=== PATIENT | female | born 1935 | race African-American/Black ===

== ENCOUNTER 2019-05-04 19:20 | Inpatient (IN) ==
[2019-05-04] MEDS ORDERED: SOLU-MEDROL IV ONE (19:52)
[2019-05-04 20:02] LABS: BASO# 0.03 X1000 (0.0-0.2); BASO% 0.2 % (0.0-0.8); EOS# 0.17 X1000 (0.0-0.7); EOS% 1.3 % (0.0-10.0); HEMATOCRIT 36.3 % (37.0-47.0); IMM GRAN# 0.04 X1000 (0.0-0.04); IMM GRAN% 0.3 % (0.0-0.5); LYMPH# 1.32 X1000 (1.2-3.4); LYMPH% 10.3 % (20.5-51.1); MCH 27.1 PG (27-31); MCHC 33.1 g/dL (33-37); MCV 81.9 FL (81-99); MONO# 0.77 X1000 (0.11-0.59); MPV 11.9 FL (7.4-10.4); NEUT# 10.54 X1000 (1.4-6.5); NEUT% 81.9 % (42.2-75.2); PLT 205 X1000 (130-400); RBC 4.43 XMIL (4.2-5.4); RDW 14.4 % (11.5-14.5); WBC 12.87 X1000 (4.8-10.8)
[2019-05-04 20:09] LABS: INR 0.91
--- NOTE | 2019-05-04 20:46 | Diag Imaging Result Doc PS360 ---
EXAM: CHEST-PORTABLE HISTORY: SOB, hypoxia TECHNIQUE: Chest single view COMPARISON: 03/21/2018 FINDINGS: The lungs are well expanded. The heart is not enlarged. There are increased interstitial markings throughout both lungs. No effusion identified. IMPRESSION: Infiltrates versus mild pulmonary edema. Electronically signed by Sanjay Soliz 05/04/2019 8:44 PM
[2019-05-04] MEDS ORDERED: VANCOMYCIN 1 GM/NS 1 GM/250 ML IVPB IV ONE (20:58)
[2019-05-04] MEDS ORDERED: ZOSYN 3.375 GM in NS 50 ML IV ONE (20:58)
[2019-05-04] MEDS ORDERED: LASIX IV ONE (20:59)
--- NOTE | 2019-05-04 21:21 | PROVIDER DOCUMENTATION ---
This chart was entered by Jessica Aguiar Scribe, acting as scribe for Roseann Jalloh MD. HPI-General Adult - General Chief Complaint: General Adult Stated Complaint: sob Time Seen by Provider: 05/04/19 19:24 Source: EMS, long term records Unable to obtain history due to:: other (patient is non-verbal and no family at bedside) Allergies/Adverse Reactions: Patient Allergies Allergy/AdvReac Type Severity Reaction Status Date / Time No Known Allergies Allergy Verified 05/04/19 23:21 Home Medications: Home Medication List Medication Instructions Recorded Confirmed Last Taken Type Amlodipine Besylate [Norvasc] 5 mg PEG DAILY 04/20/15 05/04/19 03/08/18 History Baclofen 10 mg PEG DIRECTED 04/20/15 05/04/19 03/08/18 History Baclofen 5 mg PEG DAILY@1300 08/13/15 05/04/19 03/08/18 History Cholecalciferol (Vit D3) [Vitamin 2,000 unit PEG DAILY 08/13/15 05/04/19 03/08/18 History D3] Lactulose 30 ml PEG EVERY OTHER DAY 08/13/15 05/04/19 03/08/18 History Menthol/Zinc Oxide Ointment 1 applicatn TOP PRN PRN 08/13/15 05/04/19 03/08/18 History [Calmoseptine Ointment] Balsam [place] Oil [Venelex 1 applicatn TP BID 03/09/18 05/04/19 Unknown History Ointment] Ferrous Sulfate 7.5 ml PEG BID 03/09/18 05/04/19 03/08/18 History Multivits W-Fe,Other Min [Centrum] 15 ml PEG DAILY@1300 03/09/18 05/04/19 03/08/18 History Ranitidine [Zantac] 1 tab PEG BID 03/09/18 05/04/19 03/08/18 History Acetaminophen Liquid [Tylenol 650 mg PO Q6H PRN PRN udc 03/23/18 05/04/19 Unknown Rx Liquid] Fentanyl 25 Microgm/Hr Patch 1 patch TD Q3D #10 patch 03/23/18 05/04/19 Unknown Rx [Duragesic 25 Microgm/Hr Patch] Oxycodone HCl 5 mg PEG Q4H PRN PRN #20 cap 03/23/18 05/04/19 Unknown Rx Scopolamine 1.5 mg/72 Hr Patch 1 patch TD Q3D #10 patch 03/23/18 05/04/19 Unknown Rx [Transderm-Scop] Amlodipine Besylate 1 tab PEG QPM 05/04/19 05/04/19 Unknown History Levothyroxine [Synthroid] 1 tab PEG 0600 05/04/19 05/04/19 Unknown History Protein Hydrolysate,Milk [Liquid 30 ml PEG TID 05/04/19 05/04/19 Unknown History Protein Fortifier] Sodium Cl/Potassium Chloride 1 tab PEG 1300 05/04/19 05/04/19 Unknown History [Thermotabs Tablet] - History of Present Illness -Gen Adult Nature of Presenting Problems: Pt is 83/F presenting to ED from [facility]. It was stated that she was heard moaning about an hr [employer] and she was sating 60-70% o2 on her normal 2 L. Pt arrives to ED EMS and is continuing to moan and is contracted in bed. Per NH she is at her normal baseline as far as mental status. No family at bedside. She is a DNR. No other information is able to be obtained. Location of Pain/Injury: reports: none Quality of Pain: reports: none Severity: reports: moderate Onset/Duration: reports: 1 hour ago Timing: reports: still present Context/Activities at Onset: reports: none Associated Symptoms: reports: shortness of breath Similar Symptoms Previously?: No Recently seen or treated by another doctor?: Yes Review of Systems - Adult - REVIEW OF SYSTEMS - ADULT ROS:: limited per condition Constitutional: reports: no symptoms reported Respiratory: reports: shortness of breath. denies: wheezing Gastrointestinal: reports: no symptoms reported. denies: vomiting Genitourinary: reports: no symptoms reported Musculoskeletal: reports: no symptoms reported Integumentary: reports: no symptoms reported Neurological: reports: no symptoms reported Psychiatric: reports: no symptoms reported Endocrine: reports: no symptoms reported Hematologic/Lymphatic: reports: no symptoms reported Allergic/Immunologic: reports: no symptoms reported All Other Systems: Reviewed and Negative Past History - Adult - PAST MEDICAL HISTORY-ADULT Review of Records: reports: Old Records Reviewed, Nursing Assessment Review, M edications Reviewed, Social history reviewed & non-contributory. Major Childhood Illnesses: reports: denies history Cardiovascular: reports: HTN Respiratory: reports: COPD Gastrointestinal: reports: cancer (skin), colitis, diverticulosis Obstetrical/Gynecological: reports: denies history Genitourinary: reports: denies history Musculoskeletal: reports: other (amputation) Neurological: reports: CVA, dementia, TIA Psychiatric: reports: denies history Endocrine/Immune: reports: thyroid disorder Other Conditions: reports: denies history - PRIOR SURGERIES/PROCEDURES Surgical/Procedure History: reports: bowel surgery, orthopedic (extremity) - IMMUNIZATION STATUS Childhood Immunizations: See Nurse Assessment Flu Vaccine: See Nurse Assessment - FAMILY HISTORY Family History: reviewed, not pertinent - SOCIAL HISTORY Living Situation: care facility Physical Exam-General - PHYSICAL EXAM-ADULT Exam Limited by: patient in contractures Initial Vital Signs Reviewed: Yes - CONSTITUTIONAL General Appearance: other (moaning in bed, no verbal responses, on NRB and nebulizers. contractures with legs bent to abdomen and patient laying on her l eft side) - EYES Eyes: PERRL/EOMI, pink conjunctivae - HEAD, EARS, NOSE, MOUTH & THROAT HENMT: normocephalic/atraumatic - NECK Neck: supple - RESPIRATORY Respiratory: respiratory distress, decreased breath sounds, accessory muscle use , crackles (diffusely, bilaterally), increased rate - CARDIOVASCULAR Cardiovascular: normal peripheral pulses, regular rate, rhythm - GASTROINTESTINAL (ABDOMEN) Abdominal Exam: normal bowel sounds, non tender, soft - MUSCULOSKELETAL Back Exam: kyphosis Extremity: no pedal edema - SKIN Integumentary: normal color, warm/dry - NEUROLOGIC Neurologic: other (unable to fully assess due to non-verbal and inability to cooperate or follow commands) - PSYCHIATRIC Psych/Mental Status: disoriented x 3 Progress - PLAN OF CARE/RESULTS Progress/Plan/Lab Results: Vital Signs - 8 hr 05/04/19 19:26 Temperature 98.1 F Pulse Rate 102 H Respiratory Rate 21 Blood Pressure 126/104 O2 Sat by Pulse Oximetry 100 Laboratory Results - last 24 hr 05/04/19 05/04/19 05/04/19 19:50 19:50 19:50 WBC 12.87 H RBC 4.43 Hgb 12.0 Hct 36.3 L MCV 81.9 MCH 27.1 MCHC 33.1 RDW Std Deviation 14.4 Plt Count 205 MPV 11.9 H Immature Gran % (Auto) 0.3 Neut % (Auto) 81.9 H Lymph % (Auto) 10.3 L [place] % (Auto) 6.0 Eos % (Auto) 1.3 Baso % (Auto) 0.2 Immature Gran # (Auto) 0.04 Neut # (Auto) 10.54 H Lymph # (Auto) 1.32 [place] # (Auto) 0.77 H Eos # (Auto) 0.17 Baso # (Auto) 0.03 PT 13.0 INR 0.91 Plasma Lactate 1.6 Orders Category Date Time Status CHEST-PORTABLE [RAD] Stat Exams 05/04/19 19:52 Ordered CBC WITH ELECTRONIC DIFF [HEME] Stat Lab 05/04/19 19:50 Completed COMPREHENSIVE METABOLIC PANEL [CHEM] Stat Lab 05/04/19 20:08 Ordered LACTATE, PLASMA [CHEM] Stat Lab 05/04/19 19:50 Completed PRO B-NATRIURETIC PEPTIDE Stat Lab 05/04/19 20:08 Ordered PROTIME WITH INR [COAG] Stat Lab 05/04/19 19:50 Completed TROPONIN T Stat Lab 05/04/19 20:08 Ordered URINALYSIS W/POSS RFLX CULT [URINALYSIS] Stat Lab 05/04/19 19:52 Uncollected Methylprednisolone Sod Succ [Solu-Medrol] Med 05/04/19 19:52 Discontinued 125 mg IV NOW ONE Patient SpO2 improved with duonebs x3 and solumedrol and was placed on 50% venti mask and SpO2 was in the 90s. CXR showing infiltrates vs pulmonary edema. Started on Vanc and ZOsyn, and blood cultures drawn. LA 1.6. WBC slightly elevted to 13. BNP only 388 but still given Lasix 40mg given crackles and CXR. Spoke to DC who confirmed patient is full code, still no family at bedside. Spoke to Hospitalist who accepted patient for admission. Further orders to be placed per hospitalist. Result Diagrams: 05/04/19 19:50 05/04/19 20:34 - XRAY 1 XRAY Study: Chest Impression: See EMR Report ( EXAM: CHEST-PORTABLE HISTORY: SOB, hypoxia TECHNIQUE: Chest single view COMPARISON: 03/21/2018 FINDINGS: The lungs are well expanded. The heart is not enlarged. There are increased interstitial markings throughout both lungs. No effusion identified. IMPRESSION: Infiltrates versus mild pulmonary edema. Electronically signed by Sanjay Soliz 05/04/2019 8:44 PM) - CONSULTS/PCP/HOSPITALIST Notification #1 *Consult/PCP/Hospitalist*: Dr Covington Time Discussed: 21:59 Consult Disposition: Admit Departure - Departure Date of Disposition Decision: 05/04/19 Time of Disposition Decision: 22:00 DIAGNOSIS: Pneumonia, Hypoxia, Pulmonary edema Disposition: ADMITTED INPATIENT 09 Certified Medical Emergency: Emergent Condition: Fair - Critical Care Note This patient required my direct & personal management of CC.: Yes Total Time (mins): 75 Critical Care Statement: This patient required my direct personal management to treat or rule out processes, the absence of which, could potentiallly result in sudden, clinically significant life or limb threatening deterioration. Attestation - Physician/ ALEJANDRO Attestation Patient care was provided by Advanced Practice Provider:: No The physician spent face to face time with patient:: Yes Advanced Practice Provider documentation review:: Supervising physician onsite and consulted in the evaluation and care of this patient. The physician did have a face to face encounter with the patient. This chart was documented by the indicated scribe, (Jessica Aguiar, Lester) and accurately reflects the services I performed and decisions made by me, Roseann Jalloh MD, as attested by the provider's signature.
[2019-05-04 21:28] LABS: AGAP 13; ALBUMIN 3.9 g/dL (3.5-5.0); ALKALINE PHOSPHATASE 113 U/L (32-104); BUN 16 mg/dL (8-22); CHLORIDE 97 mmol/L (98-107); COSMO 279; CREATININE 0.4 mg/dL (0.5-0.9); ESTIMATED GFR > 60; GLUCOSE 169 mg/dL (70-104); GOT 20 U/L (10-30); GPT 17 U/L (10-36); POTASSIUM 4.1 mmol/L (3.5-5.1); SODIUM 137 mmol/L (136-145); TCO2 27 mmol/L (25-35); TOTAL BILIRUBIN 0.22 mg/dL (0.20-1.00); TOTAL PROTEIN 7.7 g/dL (6.3-8.3)
[2019-05-04 22:07] LABS: URINE SOURCE CATH
[2019-05-04 22:25] LABS: BILIRUBIN URINE NEGATIVE (NEGATIVE); BLOOD URINE NEGATIVE (NEGATIVE); COLOR YELLOW; GLUCOSE URINE NEGATIVE (NEGATIVE); KETONE URINE NEGATIVE (NEGATIVE); LEUKOCYTES URINE NEGATIVE (NEGATIVE); NITRITE URINE NEGATIVE (NEGATIVE); PH URINE 6.5; PROTEIN URINE NEGATIVE (NEGATIVE); SP GRAVITY URINE 1.011; TURBIDITY URINE CLEAR (CLEAR); UR EPITHELIAL CELLS <10 /HPF (<10); URINE BACTERIA NEGATIVE /HPF; URINE RBC <10 /HPF (<10); URINE WBC <10 /HPF (<10); UROBILINOGEN URINE NORMAL (NORMAL)
[2019-05-05] MEDS ORDERED: VANCOMYCIN IV PER PHARMACY MISC SCH (01:15)
[2019-05-05] MEDS ORDERED: OXY IR PEG PRN (01:57)
[2019-05-05] MEDS ORDERED: ZINC OXIDE 20% TOP PRN (02:27)
[2019-05-05] MEDS ORDERED: VANCOMYCIN 250 MG in NS 100 ML IV ONE (03:00)
[2019-05-05] MEDS: DUONEB (A & A) INH SCH ×4 (03:30→21:30)
[2019-05-05] MEDS: ZOSYN 3.375 GM in NS 50 ML IV SCH ×4 (03:32→22:40)
[2019-05-05] MEDS ORDERED: NON-FORMULARY MED (Protein Hydrolysate,Milk [Liquid Protein Fortifier] 30 ML) PEG SCH (05:00)
[2019-05-05 05:52] LABS: BASO# 0.01 X1000 (0.0-0.2); BASO% 0.1 % (0.0-0.8); HEMATOCRIT 36.9 % (37.0-47.0); HEMOGLOBIN 12.4 g/dL (12.0-16.0); LYMPH# 0.32 X1000 (1.2-3.4); LYMPH% 3.7 % (20.5-51.1); MCH 27.3 PG (27-31); MCHC 33.6 g/dL (33-37); MCV 81.3 FL (81-99); MONO# 0.02 X1000 (0.11-0.59); MONO% 0.2 % (1.7-9.3); MPV 11.8 FL (7.4-10.4); NEUT# 8.36 X1000 (1.4-6.5); PLT 236 X1000 (130-400); RBC 4.54 XMIL (4.2-5.4); RDW 14.5 % (11.5-14.5); WBC 8.71 X1000 (4.8-10.8)
[2019-05-05] MEDS ORDERED: SYNTHROID PEG SCH (06:00)
[2019-05-05 06:05] LABS: AGAP 15; ALB/GLOB RATIO 0.9; ALBUMIN 4.1 g/dL (3.5-5.0); ALKALINE PHOSPHATASE 122 U/L (32-104); BUN 16 mg/dL (8-22); CALCIUM 10.5 mg/dL (8.8-10.2); CHLORIDE 95 mmol/L (98-107); COSMO 288; CREATININE 0.5 mg/dL (0.5-0.9); ESTIMATED GFR > 60; GLUCOSE 274 mg/dL (70-104); GOT 18 U/L (10-30); GPT 18 U/L (10-36); MAGNESIUM 2.1 mg/dL (1.5-2.7); POTASSIUM 3.7 mmol/L (3.5-5.1); SODIUM 139 mmol/L (136-145); TCO2 29 mmol/L (25-35); TOTAL PROTEIN 8.8 g/dL (6.3-8.3)
[2019-05-05] MEDS: LIORESAL PEG SCH ×2 (06:20→22:41)
[2019-05-05 06:26] LABS: INR 0.95; PROTIME 13.4 Seconds (11.0-16.0)
[2019-05-05 06:27] LABS: PTT 33.9 Seconds (22.3-41.8)
--- NOTE | 2019-05-05 06:36 | HISTORY AND PHYSICAL ---
PRIMARY CARE PHYSICIAN: Dr. Ev Reeves at [facility]. DATE AND TIME: 05/04/2019 at 2230. CHIEF COMPLAINT: Shortness of breath and hypoxia. HISTORY OF PRESENT ILLNESS: Ms. Nelson is an 83-year-old, female who is a long- term resident at [facility] in [place], [place]. According to ER staff's notes, the staff at the assisted reported that they could hear the patient moaning. They went in to check on her, performed her vital signs, and found that she had an oxygen saturation of 60-70% on her normal nasal cannula at 2 L. Per the assisted, she was at her normal baseline mentation. The patient was sent to the ER with a copy of a do not resuscitate order, although at this time we do not have any family at bedside to assist with obtaining any information. The patient does have a history of dementia as well as a CVA with residual effect causing contractures of the bilateral upper and lower extremities. The patient is nonverbal, although she does open her eyes to verbal and light tactile stimulation, although she is not able to follow any commands. She also does have some dysphagia with subsequent feeding tube placement. Upon evaluation in the ER initial vital signs were a temperature of 98.1 degrees, heart rate 102, respirations 21, blood pressure 126/104 with a MAP of 118, and 100% on non- rebreather. Since arrival she has been back down to a Ventimask at 50% and is tolerating this well and maintaining oxygen saturations at 100%. Laboratory results revealed a slightly elevated white blood cell count of 12,870. Chemistries were pretty unremarkable. Troponin was negative. ProBNP was 388. Chest x-ray showed that the lungs were well expanded and the heart was not enlarged. There were increased interstitial markings throughout both lungs. The radiologist's impression was infiltrates versus mild pulmonary edema. In the ER, they did go ahead and initiate a dose of Lasix 40 mg IV, for which the patient did have a positive response with urine output initially of 2000 mL. She was noted to have decreased breath sounds with accessory muscle use as well as crackles diffusely and bilaterally, although at the time of my examination this had markedly improved. The patient did have slightly diminished lung sounds in the left lung base, although other than this she was clear to auscultation. She had blood cultures obtained. We will obtain a sputum culture as well. She has been placed with antibiotic coverage of vancomycin and Zosyn, and given that she is a assisted resident we will cover her for healthcare associated pneumonia. She has been placed in patient for admission. REVIEW OF SYSTEMS: We are unable to perform review of systems with the patient due to her current condition and mentation. PAST MEDICAL HISTORY: This was obtained from her assisted records as well as previous history and physical: 1. Hypothyroidism. 2. Vitamin D deficiency. 3. Protein calorie malnutrition. 4. Anemia. 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 6. COPD on continuous oxygen per nasal cannula at 2 L. 7. Hypertension. 8. 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 9. Dementia. 10. Dysphagia with subsequent feeding tube placement. 11. Aphasia. PAST SURGICAL HISTORY: 1. Gastrectomy tube placement. 2. Left orthopedic hip replacement. 3. Left carotid endarterectomy. FAMILY HISTORY: We were unable to obtain past family medical history due to the patient's current condition and mentation. SOCIAL HISTORY: The patient is a long-term resident at [facility]. There is no known history of tobacco, alcohol, or illicit drug use. ALLERGIES: The patient has no known allergies. HOME MEDICATIONS: 1. Norvasc 5 mg per G-tube daily at 13:00. 2. Norvasc 2.5 mg per G-tube at bedtime. 3. Baclofen 5 mg per G-tube daily at 13:00. 4. Baclofen 10 mg per G-tube b.i.d. at 5:00 and 21:00. 5. Vitamin D3 2000 units per G-tube daily at 13:00. 6. Fentanyl patch 25 mcg/hour, 1 transdermally q.3 days at 17:00. 7. Ferrous sulfate elixir 220 mg/5 mL with 7.5 mL per G-tube 3 times a day at 8:00, 12:00 and 16:00. 8. Lactulose 30 mL per G-tube every other day at 13:00. 9. Synthroid 100 mcg per G-tube at 6:00. 10. Centrum liquid multivitamin 15 mL per G-tube every day at 12:00. 11. OxyIR 5 mg per G-tube q.4 hours p.r.n. for pain. 12. Zantac 150 mg per G-tube b.i.d. 13. Scopolamine patch 1.5 mg per 72 hours, one patch transdermally q.3 days at 12:00. 14. Zinc oxide 20% ointment, apply topically to affected area at G-tube site as needed for skin irritation. 15. Thermotabs give 1 tablet per G-tube daily at 13:00. LABORATORY RESULTS: White blood cell count 12,870, hemoglobin 12, hematocrit 36.3, platelet count 205,000, PT 13, INR 0.91, sodium 137, potassium 4.1, chloride 97, serum bicarb 27, BUN 16, creatinine 0.4, GFR greater than 60, glucose 169, calcium 10. Liver function tests within normal limits. Alkaline phosphatase is slightly elevated at 113. Troponin is less than 0.01. ProBNP is 388. Plasma lactate is 1.6. Urinalysis obtained via catheter was negative for protein, glucose, ketones, blood, nitrites, leukocytes, white blood cells, or bacteria. EKG: Showed sinus tachycardia with possible left atrial enlargement at a rate of 103 with a QTc of 476. IMAGING STUDIES: Chest x-ray showed that the lungs were well expanded and heart was not enlarged. There were increased interstitial markings throughout both lungs. There was no effusion identified. The radiologist's impression was infiltrates versus mild pulmonary edema. PHYSICAL EXAMINATION: VITAL SIGNS: Temperature 98.1 degrees, heart rate 103, respirations 20, blood pressure 144/61, MAP of 77, oxygen saturation 99% on a Ventimask at 50%. GENERAL: Ms. Nelson is an elderly female who is resting on the ER stretcher. She is in no acute distress. The patient is resting with her eyes closed. She was arousable with verbal light tactile stimulation, although would only open her eyes and close them immediately back. The patient has a history of a stroke and she does have contractures noted of bilateral upper and lower extremities. She is aphasic and is not able to follow commands. According to assisted staff she is at her baseline mentation. HEENT: Head is atraumatic, normocephalic. Pupils are 3 mm bilaterally, equal, round and reactive to light. Oral mucosa is moist. NECK: Supple. Trachea midline. CARDIOVASCULAR: S1, S2 present. No murmurs, gallops, or rubs appreciated. Slightly tachycardic rate that is regular. PULMONARY: Patient has symmetrical chest expansion bilaterally. Lung sounds are clear in all welch, except slightly diminished in the left lung base. ABDOMEN: Soft. Does not appear to be distended. She did not have any facial grimacing, guarding or localization to pain upon palpation. Bowel sounds are present all 4 quadrants. Normoactive. The patient's G-tube site upon examination did have some slight erythema noted around the site extending about 1 inch outward. There did not appear to be any drainage noted. EXTREMITIES: No cyanosis or edema noted. Radial pulses and pedal pulses are 2+ bilaterally. The patient does have contractures noted to bilateral upper and lower extremities, although some slight movement was noted in her bilateral lower extremities. INTEGUMENTARY: The patient's skin is pink, warm, and dry. NEUROLOGICAL: The patient is, as mentioned above is oriented x0. She is resting with her eyes closed. She does respond to verbal and light tactile stimulation by opening her eyes and immediately closing them back though. The patient is aphasic. She is not been able to follow commands. According to report from nursing staff at [facility], this is the patient's baseline mentation, although due to this patient's neurological exam is limited. ASSESSMENT AND PLAN: 1. Possible bilateral pneumonia. The patient's chest x-ray did note infiltrates versus mild pulmonary edema with increasing interstitial markings throughout both lungs. She does have some slight leukocytosis. She was noted to have crackles upon initial arrival to the ER and was hypoxic. We have gone ahead and placed her with antibiotic coverage of vancomycin and Zosyn. We will cover her for healthcare associated pneumonia given that she is a permanent resident at [facility]. Blood cultures have been obtained. Sputum culture has been ordered. We will do scheduled DuoNeb treatments. We will continue to follow. 2. Pulmonary edema. The patient does not have a known history of any heart failure. Chest x-ray did show, as mentioned above infiltrates versus mild pulmonary edema. She does not have any edema noted in extremities. She was noted to have diffuse crackles bilaterally upon arrival to the ER, but after being given 40 mg of Lasix IV she did have improvement in her respiratory status. The patient has been able to be weaned down to a Ventimask at 50% and is maintaining oxygen saturation at 100%. Upon reassessment she now does have lung sounds that are clear to auscultation in all welch, except for just slightly diminished in the left lung base. She did have a positive response to Lasix with a urine output of 2000 mL. We will continue to monitor her respiratory status closely. She will be on continuous cardiac telemetry and pulse oximetry. We have placed an order for an echocardiogram in the morning to rule out any heart failure as well. We will also repeat a series of cardiac enzymes and will continue to follow closely. 3. Acute hypoxic respiratory failure. This is likely multifactorial. The patient does have possible pneumonia versus pulmonary edema and does have a history of COPD with continuous oxygen. Will continue treatment as mentioned above in #1 and #2. 4. History of chronic obstructive pulmonary disease on continuous oxygen via nasal cannula at 2L. 5. History of cerebrovascular accident with residual effect causing contractures of the bilateral upper and lower extremities as well as dysphagia with subsequent feeding tube placement and aphasia. 6. Dementia. 7. Hypertension. We will continue her other prescribed antihypertensive medications. 8. Hypothyroidism. We will continue her Synthroid. We have placed orders for a TSH in the morning. 9. Dysphagia with subsequent feeding tube placement. We have continued the patient's tube feedings and her free water flushes. She was previously receiving 50 mL/hour, although given possibility of pulmonary edema with some fluid overload, we have cut this back to 25 mL/hour. This will need to be re-evaluated. We will monitor her fluid volume status closely. 10. Deep vein thrombosis prophylaxis is provided with sequential compression devices. The patient was placed on the medical floor with telemetry. She will have vital signs q.4 hours. We will do strict intake and output. We will repeat a CBC, CMP, and magnesium in the morning. Further orders and recommendations pending hospital course, diagnostic studies, and physician evaluation. Dictated by MARCK Arshad for Luis Covington MD I have performed a face to face diagnostic evaluation. Labs/ Xrays- reviewed. Exam- Chest- rales, CV- regular. A/P- Pneumonia, COPD- Admit, IV ABX, duo nebs. Dr. Covington cc: Luis Covington MD [facility]
[2019-05-05 07:06] LABS: LYMPHS 4 % (21-51); SEGS 96 % (42-75)
[2019-05-05] MEDS ORDERED: FEOSOL LIQUID PEG SCH (08:00)
--- NOTE | 2019-05-05 10:31 | PROGRESS NOTE ---
DATE: 05/05/2019 SUBJECTIVE: This morning Ms. Nelson is seen in her hospital bed. She is nonverbal, and there is no family member at the bedside. From documentation, it appears that Ms. Nelson is a long-term resident of [facility] in [place], [place]. She has CVA which was complicated with dysphagia leading to a PEG tube placement. She was brought in last night because of shortness of breath and O2 saturation in the 60s to 70s. OBJECTIVE: This morning her blood pressure is 141/59, pulse is 81, respiration is 18, temperature is 98.6 degrees. The patient was saturating 100% on face mask. On general exam, Ms. Nelson is an 83-year-old female. She is in bed. She does not seem to be in any distress. Mucosa is pink and moist. Anicteric. Acyanotic. Neck is supple. Chest: Air entry is bilaterally reduced. There is some expiratory wheezing as well as some crackles in the posterior lung welch. Cardiovascular: Regular rate and rhythm. Abdomen is soft. There is a PEG tube in place. Extremities: No pedal edema. Central Nervous System: Patient is nonverbal, and she has spastic quadriplegia. DIAGNOSTIC STUDIES: WBC is down to 8.71, hemoglobin is 12.4, platelet count of 236. Chemistry is also reviewed; glucose is 274, rest of chemistry is unremarkable. TSH is 1. Blood culture still pending so far. A chest x-ray did show infiltrate versus mild pulmonary edema. MEDICATION: Current medications have all been reviewed. Patient has been started on vancomycin and Zosyn. ASSESSMENT: 1. Acute on chronic hypoxemic respiratory failure. The patient is currently on a Venturi mask and seems to be saturating a whole lot better. 2. Bilateral multifocal pneumonia, presumably aspiration pneumonitis. The patient is on IV antibiotics. 3. History of cerebrovascular accident complicated with dysphagia. The patient has a PEG tube and on tube feedings. 4. Hypothyroidism with low TSH level, consistent with iatrogenic hyperthyroidism. We will reduce the dose of the levothyroxine. 5. History of chronic obstructive pulmonary disease. 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 cc: MD JULIA Howell
[2019-05-05] MEDS ORDERED: TRANSDERM-SCOP TD SCH (12:00)
[2019-05-05] MEDS: FEOSOL LIQUID PO SCH ×3 (12:28→16:37)
[2019-05-05] MEDS: ZANTAC PEG SCH ×2 (12:28→22:41)
[2019-05-05] MEDS ORDERED: LACTULOSE PEG SCH (13:00)
[2019-05-05] MEDS ORDERED: ELDERTONIC PEG SCH (13:00)
[2019-05-05] MEDS ORDERED: LIORESAL PEG SCH (13:00)
[2019-05-05] MEDS ORDERED: VITAMIN D PEG SCH (13:00)
[2019-05-05] MEDS ORDERED: NORVASC PEG SCH ×2 (13:00→20:00)
[2019-05-05] MEDS ORDERED: DURAGESIC 25 MICROGM/HR PATCH TD SCH (17:00)
[2019-05-06] MEDS: DUONEB (A & A) INH SCH ×3 (03:40→15:26)
[2019-05-06] MEDS: ZOSYN 3.375 GM in NS 50 ML IV SCH ×2 (04:07→09:37)
[2019-05-06] MEDS: LIORESAL PEG SCH (04:08)
[2019-05-06] MEDS: SYNTHROID PEG SCH ×2 (04:08→07:48)
[2019-05-06 07:12] LABS: AGAP 12; ALBUMIN 3.4 g/dL (3.5-5.0); BUN 22 mg/dL (8-22); CALCIUM 10.1 mg/dL (8.8-10.2); CHLORIDE 100 mmol/L (98-107); COSMO 289; CREATININE 0.5 mg/dL (0.5-0.9); ESTIMATED GFR > 60; GLUCOSE 143 mg/dL (70-104); MAGNESIUM 2.3 mg/dL (1.5-2.7); PHOSPHORUS 2.6 mg/dL (2.7-4.5); POTASSIUM 3.3 mmol/L (3.5-5.1); SODIUM 142 mmol/L (136-145); TCO2 30 mmol/L (25-35)
--- NOTE | 2019-05-06 07:47 | EKG Report ---
Test Performed on : 05/04/2019 11:46:05 PM Test Reason : Dyspnea,Hypoxia Blood Pressure : / mmHG Vent. Rate : 103 BPM Atrial Rate : 103 BPM P-R Int : 146 ms QRS Dur : 072 ms QT Int : 364 ms P-R-T Axes : 085 083 069 degrees QTc Int : 476 ms Sinus tachycardia. Possible Left atrial enlargement Borderline ECG When compared with ECG of 11-MAR-2018 21:47, Nonspecific T wave abnormality no longer evident in Inferior leads Nonspecific T wave abnormality no longer evident in Lateral leads Confirmed by Ajay HALEY, Moses Yee ([id number]) on 05/07/2019 7:27:44 PM
[2019-05-06] MEDS: FEOSOL LIQUID PO SCH (09:37)
--- NOTE | 2019-05-06 09:41 | Diag Imaging Result Doc PS360 ---
EXAM: CHEST-PORTABLE HISTORY: SOB TECHNIQUE: Chest single view COMPARISON: 05/04/2019 FINDINGS: The lungs are well expanded. The heart is not enlarged. The vessels are not distended. There are fewer infiltrates on the current exam. No effusion identified. IMPRESSION: Interval improvement Electronically signed by Sanjay Soliz 05/06/2019 9:39 AM
[2019-05-06] MEDS: ZANTAC PEG SCH (09:42)
--- NOTE | 2019-05-06 13:55 | PROGRESS NOTE ---
DATE: 05/06/2019 SUBJECTIVE: This morning Ms. Nelson is clinically stable, no family member at the bedside at the time of the encounter. There is no interval history. Per the nursing staff, the night was uneventful. They have been able to get her PEG tube to be functioning. OBJECTIVE: Vitals: Blood pressure is 110/52, pulse oximetry 90%, respirations 16, temperature is 98.5. The patient was saturating 99% to 100% on 2 L of nasal cannula. On general exam, the patient is an 83-year-old female. She is in bed, no distress. Mucosa is pink and moist. Anicteric. Acyanotic. Neck is supple. She is in a position with extreme spastic quadriplegia. Chest: Good entry bilaterally, a few crackles posteriorly. Cardiovascular: Regular rate and rhythm. Abdomen is soft, PEG tube in place, insertion site looks clean. Extremities: No pedal edema. Central Nervous System: The patient is nonverbal and she has spastic quadriplegia. DIAGNOSTIC STUDIES: Laboratory work, the chemistries were reviewed, unremarkable except for low potassium and low phosphorus, which have been replaced. . ASSESSMENT: 1. [id number] hypoxemic respiratory failure. The patient is currently back to 2 L of normal off nasal cannula oxygenation and she is doing well. 2. Bilateral multi-focal pneumonia, presumably aspiration pneumonitis. The patient is on intravenous antibiotics. This will be transitioned to oral Augmentin. 3. 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 The patient has a percutaneous endoscopic gastrostomy tube in place for tube feedings. 4. Hypothyroidism. 5. History of chronic obstructive pulmonary disease. Currently not in exacerbation. 6. 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 The patient is actually currently in vegetable state. In general, the patient is clinically stable. We will switch her antibiotics to p.o. Augmentin. She is saturating 99% to 100% on 2 L which is her baseline. A repeat chest x-ray this morning shows interval improvement. We think the patient is stable for discharge. Please refer to the discharge summary dictated by the TEXTILE SLITTING MACHINE OPERATOR in the chart. cc: Mann Sorensen MD
--- NOTE | 2019-05-06 14:29 | ECHO REPORT ---
ORDER DATE: 05/05/2019 INDICATIONS: Shortness of breath, pulmonary edema. FINDINGS: 1. Right atrium appears normal in size at 2.6 cm. 2. Mild tricuspid regurgitation, RV systolic pressure of 41 mmHg. 3. Normal RV size and systolic function. 4. No significant pulmonic insufficiency. 5. Mild left atrial enlargement with a volume index of 28. 6. No mitral valve prolapse. There is heavy mitral annular calcification identified. There is trace mitral regurgitation. There is suggestion of moderate mitral stenosis with a peak gradient of 21, mean of 8.7. RV systolic pressure of 41. 7. The left ventricle appears normal in size with an end diastolic dimension of 3.8. Normal wall thicknesses with a posterior and interventricular septal wall thickness of 0.8 cm each. Somewhat hyperdynamic LV systolic function with an estimated EF of greater than 70%. 8. Aortic valve appears calcified. There does not appear to be any clear significant evidence of aortic stenosis. Mild aortic insufficiency identified. 9. Aorta appears normal in visualized segments. 10.No pericardial effusion seen. cc: Zay Mcclure MD
--- NOTE | 2019-05-06 14:36 | DISCHARGE SUMMARY ---
ADMISSION DATE: 05/04/2019 DISCHARGE DATE: 05/06/2019 PRIMARY CARE PHYSICIAN: Dr. Ev Reeves at [facility] ADMITTING DIAGNOSES: 1. Possible bilateral pneumonia. 2. Pulmonary edema. 3. Acute hypoxic respiratory failure. 4. History of chronic obstructive pulmonary disease, on continuos O2 at 2 L. 5. History of cerebrovascular accident with residual effect causing contractures of the bilateral upper and lower extremities as well as dysphagia with subsequent feeding tube placement and aphasia. 6. Dementia. 7. Hypertension. 8. Hypothyroidism. DISCHARGE DIAGNOSES: 1. Possible bilateral pneumonia. 2. Pulmonary edema. 3. Acute hypoxic respiratory failure. 4. History of chronic obstructive pulmonary disease, on continuos O2 at 2 L. 5. History of cerebrovascular accident with residual effect causing contractures of the bilateral upper and lower extremities as well as dysphagia with subsequent feeding tube placement and aphasia. 6. Dementia. 7. Hypertension. 8. Hypothyroidism. SUMMARY OF FINDINGS: This is an 83-year-old female who resides at [facility]. Staff reported they could hear the patient moaning. They went in to check on her, performed vital signs and found that she had an O2 saturation of 60% to 70% on her normal O2 at 2 L via nasal cannula. The patient was sent to the ER with a copy of her do not resuscitate order, but no family was at the bedside to assist with obtaining information. ER evaluation showed that she was saturating 100% on a 50% Venturi mask, was placed on IV antibiotics, breathing treatments, is now saturating 99% on her O2 via nasal cannula at 3 L per minute. Her white count is down to 8.71 yesterday. It is now felt that she can safely be discharged back to her assisted. DISCHARGE MEDICATIONS: Norvasc 5 mg per PEG tube daily, Norvasc 2.5 mg 1 per PEG nightly at bedtime, baclofen 5 mg per PEG daily at 1:00 p.m., baclofen 10 mg per PEG b.i.d., vitamin D3 2000 units per PEG daily, Duragesic 25 mcg per hour patch--1 patch transdermally q.3 days, lactulose 30 mL per PEG every other day, Synthroid 100 mcg 1 per PEG daily, Centrum 15 mL per PEG daily, oxycodone 5 mg per PEG q.4 hours, Zantac 150 mg per PEG b.i.d., a transdermal scopolamine patch transdermally q.3 days, zinc oxide topically p.r.n., Augmentin liquid 600 mg per tube q.12 hours for 7 days, ferrous sulfate solution 7.5 mL per PEG t.i.d., liquid protein fortifier 30 mL per PEG t.i.d., Thermotabs 1 per PEG at 1:00 p.m. daily. FOLLOWUP: She will follow up with facility physician. Time spent on discharge was 35 minutes. Dictated by MARCK Brooks for Mann Sorensen MD cc: MARCK Brooks MD
[2019-05-06 16:48] VITALS: BP 128/33
[2019-05-07] MEDS ORDERED: VANCOMYCIN 1 GM/NS 1 GM/250 ML IVPB IV SCH (15:00)
== END 2019-05-06 18:51 | DRG 177 ==
LOC: SUPCPDRO → ED 19:20 → SUATTDRO 23:19 → 4N 23:19 → UNDODISIN 05-06 15:38
PROVIDERS: ATTEND Internal Medicine
CPT/HCPCS: 51702; 71010; 71045; 80048; 80053; 81001; 82040; 82550; 83605; 83735; 83880; 84100; 84134; 84443; 84484; 85025; 85610; 85730; 87040; 93005; 93010; 93306; 94640; 94760; 94761; 96365; 96366; 96368; 96375; 99285; A9270; J1940; J2543; J2930; J3370; J7040